=== PATIENT | male | born 1970 | race Caucasian/White ===

== ENCOUNTER → 2019-09-14 13:02 | Outpatient (BNVA) | payer BC, SELFPAY | PROVIDERS: Family Provider Family Medicine; PCP Family Medicine; Visit Provider Urology | DX: N41.0 Acute prostatitis (principal); N39.9 Disorder of urinary system, unspecified; N20.1 Calculus of ureter | CPT/HCPCS: 81001 ==

== ENCOUNTER 2019-10-26 15:11 | Outpatient (CLI) | payer BC, SELFPAY ==
--- NOTE | 2019-10-26 15:00 | US_ITS ---
WS: [id number] RENAL ULTRASOUND REASON FOR EXAM: RENAL U/S [facility]@3:00PM WITH KUB ALSO.APPT TO FOLLOW TECHNIQUE: Grayscale and Doppler ultrasound examination of the kidneys. FINDINGS: Right kidney: Right kidney measures 14.8 cm x 6.2 cm x 7.7 cm. Mild dilatation of the calyceal struct ures the right kidney but a definite obstructing lesion is not observed. The cortex on the right lary ured 1.74 cm. Left kidney: Left kidney measures 14.2 cm x 4.7 cm x 5.1 cm. The cortex on the left measured 1.55 cm The urinary bladder was smooth in outline appears to distend well there is no wall lesions identified . US/US renal BI* [id number] IMPRESSION: Mild hydronephrosis of the right kidney Enlarged both kidneys Normal urinary bladder.
== END 2019-10-26 15:12 | disposition home or self-care (01) ==
LOC: RAD 15:16
PROVIDERS: PCP Family Medicine; Visit Provider Urology
DX: R33.9 Retention of urine, unspecified (principal); N20.0 Calculus of kidney; F17.290 Nicotine dependence, other tobacco product, uncomplicated; R10.9 Unspecified abdominal pain; N13.30 Unspecified hydronephrosis; N28.81 Hypertrophy of kidney
CPT/HCPCS: 76770; 81001

== ENCOUNTER 2019-10-26 15:26 | Outpatient (CLI) | payer BC, SELFPAY ==
--- NOTE | 2019-10-26 15:00 | XR_ITS ---
WS: [id number] XR KUB [id number] REASON FOR EXAM: FLANK PAIN FINDINGS: A large stone is seen in the pelvis of the right kidney the right kidney appears be mildly enlarged. The remaining abdomen showed no pathology. XR/XR KUB [id number] IMPRESSION: A large calcified mass in the region of the right pelvis suggesting a large sto ne. Review the ultrasound and did not see this calcified mass this appears to be sl ightly under of the right kidney.
== END 2019-10-26 15:27 | disposition home or self-care (01) ==
LOC: RAD 15:28
PROVIDERS: PCP Family Medicine; Visit Provider Urology
DX: R10.9 Unspecified abdominal pain (principal)
CPT/HCPCS: 74018

== ENCOUNTER 2019-11-02 14:20 | Outpatient (CLI) | payer BC, SELFPAY ==
--- NOTE | 2019-11-02 14:30 | CT_ITS ---
WS: [id number] CT ABDOMEN AND PELVIS NONCONTRAST HISTORY: RENAL STONE TECHNIQUE: Imaging performed through the abdomen and pelvis. Coronal and sagittal reformats are submi tted. All CT scans at [facility] use at least one of these dose optimization techniques: automated exposure control; mA and/or kV adjustment per patient size (includes targeted exams where d ose is matched to clinical indication); or iterative reconstruction. DLP: 1249.96 mGy.cm COMPARISON: None available. Lower thorax: Lung bases are clear. No hiatal hernia. Liver: Normal size liver. There are a few scattered hypodensities throughout the liver which cannot b e further characterized. No bile duct dilatation. Gallbladder: Unremarkable. Pancreas: Normal. Spleen: Normal size spleen with granulomata. Adrenal glands: Normal. Right kidney: Normal size RIGHT kidney. There is a large calcification at the RIGHT UP junction measu ring 2.1 cm. There is mild dilatation of the renal pelvis and calyces. Mild thickening of the wall of the renal pelvis. Ureter distal to this calcification is normal size. Left kidney: Normal size with no stones, mass or atrophy. Abdominal aorta and IVC are unremarkable. No free fluid, intraperitoneal air or significant lymphadenopathy. GI tract: Normal appendix. No GI tract obstruction. Abdominal wall: Intact. Pelvis: Normal. Osseous structures: Unremarkable. CT/CT kidney stone [id number] IMPRESSION: 1. RIGHT UP junction calcification measuring 2.1 cm. Causing a mild hydronephr osis. 2. Normal appendix.
== END 2019-11-02 14:21 | disposition home or self-care (01) ==
LOC: RAD 14:26
PROVIDERS: PCP Family Medicine; Visit Provider Urology
DX: N20.0 Calculus of kidney (principal); R33.8 Other retention of urine; N28.89 Other specified disorders of kidney and ureter
CPT/HCPCS: 74176; 80053; 81001

== ENCOUNTER 2019-12-20 09:04 | Outpatient (CLI) | payer BC, SELFPAY ==
--- NOTE | 2019-12-20 09:09 | FL_ITS ---
NOTE: Report was unsigned for reason: Order was edited. Original Signature date and time was: 12/20/2019 1052 WS: [id number] INDICATION: Antegrade nephrostogram. Allowing for obstruction. TECHNIQUE: Fluoroscopic nephrostogram with 30 cc Visipaque. FLUOROSCOPY TIME 2 minutes FINDINGS: Patient was positioned prone on the fluoroscopy table. Nephrostomy tube was clamped and tubing decoupled from the drainage bag. Nephrostomy tube was unclamped and approximately 30 cc of Visipaque was administered. Rapid filling of the right renal collecting system. Right ureter immediately fills with normal distention. No filling defects in the ureter proximal and mid. Mild segmental tapered narrowing involving the distal ureter at the UVJ likely due to spasm with delayed emptying. Contrast emptying into the bladder is visualized with contrast retention on the delayed imaging. No evidence of leak about the nephrostomy tube. Persistent mild to moderate hydronephrosis right kidney and collecting system. Postdrainage images demonstrates post drainage images demonstrate residual contrast within the collecting system and ureter at the 25 minute dianne with incomplete partial imaging. Nephrostomy tube was flushed with 10 cc saline. [facility] [id number] IMPRESSION: 1. The existing nephrostomy tube was injected with 30 cc Visipaque. Rapid ante grade filling of the renal collecting system and ureter down to the level of th e bladder. No evidence of high-grade stricture or filling defects. 2. Mild to moderate residual hydronephrosis right renal collecting system with blunting of the calyces. Mild ureterectasis. 3. Mild segmental narrowing involving the distal ureter at the UVJ likely due to spasm. No visualized obstructing calculi. Incomplete partial emptying on the post drainage imaging 4. No evidence of nephrostomy tube leak. 5. Retained contrast in the collecting system and ureter at 25 minutes with vi sualized contrast in the bladder.
[2019-12-20] MEDS: iodixanol 320 mg/mL 100mL Btl XX (10:09)
== END 2019-12-20 09:05 | disposition home or self-care (01) ==
PROVIDERS: PCP Family Medicine; Visit Provider Urology
DX: N13.4 Hydroureter (principal); N13.39 Other hydronephrosis
CPT/HCPCS: 50431; 77002